=== PATIENT | female | born 1990 | race African-American/Black ===

== ENCOUNTER 2016-10-23 22:21 | Emergency (ER) | payer MEDICAID ==
[2016-10-24] MEDS ORDERED: CLINDAMYCIN HCL 150 MG CAPSULE PO ONE (03:14)
[2016-10-24] MEDS ORDERED: IBUPROFEN 600 MG TABLET PO ONE (03:14)
[2016-10-24] MEDS ORDERED: ONDANSETRON 4 MG TAB.RAPDIS SL ONE (03:15)
[2016-10-24] MEDS ORDERED: NORMAL SALINE 1000 ML 1,000 ML IV PRN (03:22)
--- NOTE | 2016-10-24 03:23 | ER Document Report ---
ED Flu Like - General Chief Complaint: Flu Symptoms Stated Complaint: FLU LIKE SYMPTOMS Time seen by provider: 03:23 Mode of Arrival: Ambulatory Information source: Patient TRAVEL OUTSIDE OF THE [place] IN LAST 30 DAYS: No - HPI Patient complains to provider of: fever, sore throat, vomiting Onset: Yesterday Timing/Duration: Persistent Quality of pain: Achy Severity: Mild Pain Level: 2 Associated symptoms: Body/muscle aches, Fever, Nausea, Vomiting, Sore throat Similar symptoms previously: No Recently seen / treated by doctor: No Notes: Patient is a 25-year-old female who presents to the emergency room complaining of sore throat, subjective fever, vomiting that started yesterday, she denies any sick contacts, no recent traveling, denies chest pain, no abdominal pain no diarrhea, patient did not take any medication at home prior to coming to the emergency room - Related Data Allergies/Adverse Reactions: Penicillins Allergy (Verified 11/06/15 08:33) Past Medical History - General Information source: Patient - Social History Smoking Status: Never Smoker Chew tobacco use (# tins/day): No Frequency of alcohol use: Rare Drug Abuse: None Family History: CVA, Other - anemia Patient has suicidal ideation: No Patient has homicidal ideation: No Pulmonary Medical History: Denies: Hx Asthma Neurological Medical History: Reports: Hx Migraine Renal/ Medical History: Denies: Hx Peritoneal Dialysis GI Medical History: Denies: Hx Gastroesophageal Reflux Disease Past Surgical History: Reports: Hx Breast Surgery - reduction 2006 - Immunizations Hx Diphtheria, Pertussis, Tetanus Vaccination: Yes Review of Systems - Review of Systems Constitutional: See HPI EENT: See HPI Cardiovascular: No symptoms reported Respiratory: No symptoms reported Gastrointestinal: See HPI Genitourinary: No symptoms reported Female Genitourinary: No symptoms reported Musculoskeletal: No symptoms reported Skin: No symptoms reported Hematologic/Lymphatic: No symptoms reported Neurological/Psychological: No symptoms reported -: Yes All other systems reviewed and negative Physical Exam - Vital signs Vitals: Temp Pulse Resp BP Pulse Ox 99.8 F 133 H 22 H 113/65 97 10/23/16 22:35 10/23/16 22:35 10/23/16 22:35 10/23/16 22:35 10/23/16 22:35 Interpretation: Tachycardic - General General appearance: Alert In distress: None - HEENT Head: Normocephalic, Atraumatic Eyes: Normal Conjunctiva: Normal Extraocular movements intact: Yes Eyelashes: Normal Pupils: PERRL Mouth/Lips: Normal Mucous membranes: Normal Pharynx: Erythema, Exudate, Tonsillar hypertrophy Neck: Normal - Respiratory Respiratory status: No respiratory distress Chest status: Nontender Breath sounds: Normal Chest palpation: Normal - Cardiovascular Rhythm: Regular, Tachycardia Heart sounds: Normal auscultation Murmur: No - Abdominal Inspection: Normal, Obese Distension: No distension Bowel sounds: Normal Tenderness: Nontender Organomegaly: No organomegaly - Back Back: Normal, Nontender - Extremities General upper extremity: Normal inspection, Nontender, Normal color, Normal ROM , Normal temperature General lower extremity: Normal inspection, Nontender, Normal color, Normal ROM , Normal temperature, Normal weight bearing. No: Rafi's sign - Neurological Neuro grossly intact: Yes Cognition: Normal Orientation: AAOx4 Abraham Coma Scale Eye Opening: Spontaneous Abraham Coma Scale Verbal: Oriented Abraham Coma Scale Motor: Obeys Commands [place] Coma Scale Total: 15 Speech: Normal Motor strength normal: LUE, RUE, LLE, RLE Sensory: Normal - Psychological Associated symptoms: Normal affect, Normal mood - Skin Skin Temperature: Warm Skin Moisture: Dry Skin Color: Normal Course - Re-evaluation Re-evalutation: 10/24/16 04:14 Patient resting comfortably reports feeling much better, physical exam findings are consistent with strep pharyngitis, rapid strep test confirms this, she will be started on antibiotics for this, advised to follow-up with her primary care provider or return if symptoms worsen, patient acknowledges understanding and agreement with this - Vital Signs Vital signs: Temp Pulse Resp BP Pulse Ox 99.0 F 118 H 16 119/73 97 10/24/16 03:16 10/24/16 03:16 10/24/16 03:16 10/24/16 04:01 10/24/16 04:01 Discharge - Discharge Clinical Impression: Strep pharyngitis Nausea and vomiting Qualifiers: Vomiting type: unspecified Vomiting Intractability: non-intractable Qualified Code(s): R11.2 - Nausea with vomiting, unspecified Condition: Stable Disposition: HOME, SELF-CARE Instructions: Antinausea Medication ([facility]), Intravenous (IV) Fluids ([facility]), Strep Throat ([facility]) Additional Instructions: Drink plenty of fluids. Tylenol or Motrin as needed for fever. Follow-up with your primary care provider in one to 2 days. Return to the emergency room immediately if symptoms worsen or any additional concerns. Prescriptions: Clindamycin HCl 300 mg PO RTTIDP PRN #30 capsule PRN Reason: Forms: Return to Work
[2016-10-24 04:06] VITALS: BP 119/73
[2016-10-24] MEDS ORDERED: ONDANSETRON ODT 4 MG TAB (6 TAB/DSPK) PO PRN (04:16)
== END 2016-10-24 04:37 | disposition home or self-care (01) ==
LOC: ER 22:21
DX: J02.0 Streptococcal pharyngitis (principal); R11.2 Nausea with vomiting, unspecified; M79.1 Myalgia; Z88.0 Allergy status to penicillin; Z87.19 Personal history of other diseases of the digestive system; R00.0 Tachycardia, unspecified
CPT/HCPCS: 99283; 96360; 87880; S0119; J7030

== ENCOUNTER 2017-03-22 17:35 | Emergency (ER) | payer MEDICAID, OTHER ==
[2017-03-22 17:40] VITALS: BP 119/74
--- NOTE | 2017-03-22 18:53 | ER Document Report ---
ED Skin Rash/Insect Bite/Abscs - General Chief Complaint: Skin Problem Stated Complaint: RASH,SWOLLEN NECK Time Seen by Provider: 03/22/17 18:31 Mode of Arrival: Ambulatory Information source: Patient TRAVEL OUTSIDE OF THE [place] IN LAST 30 DAYS: No - HPI Patient complains to provider of: Other - dark brown irritations to right side of face for 2 weeks Onset: Other - 2 weeks Onset/Duration: Gradual Quality of pain: Burning Severity: Mild Pain Level: 1 Skin Character: Other - dark brown patches to right lower face Quality of rash: Itchy Identify cause: No Exacerbated by: Denies Relieved by: Denies Similar symptoms previously: No Recently seen / treated by doctor: No - Related Data Allergies/Adverse Reactions: Penicillins Allergy (Verified 03/22/17 17:38) Past Medical History - General Information source: Patient - Social History Smoking Status: Never Smoker Cigarette use (# per day): No Chew tobacco use (# tins/day): No Smoking Education Provided: No Frequency of alcohol use: Rare Drug Abuse: None Occupation: exchange Lives with: Family Family History: CVA, Other - anemia - Past Medical History Cardiac Medical History: Reports: Hx Hypertension Pulmonary Medical History: Reports: None EENT Medical History: Reports: None Neurological Medical History: Reports: Hx Migraine Endocrine Medical History: Reports: None Renal/ Medical History: Reports: None Malignancy Medical History: Reports: None GI Medical History: Reports: None Musculoskeltal Medical History: Reports None Skin Medical History: Reports None Psychiatric Medical History: Reports: None Traumatic Medical History: Reports: None Infectious Medical History: Reports: None Past Surgical History: Reports: Hx Breast Surgery - reduction 2006 - Immunizations Hx Diphtheria, Pertussis, Tetanus Vaccination: Yes Review of Systems - Review of Systems Constitutional: No symptoms reported EENT: Other - fungal dark spots to face started 3 weeks ago, tender post aricula node Cardiovascular: No symptoms reported Respiratory: No symptoms reported Gastrointestinal: No symptoms reported Genitourinary: No symptoms reported Female Genitourinary: No symptoms reported Musculoskeletal: No symptoms reported Skin: No symptoms reported Hematologic/Lymphatic: No symptoms reported Neurological/Psychological: No symptoms reported -: Yes All other systems reviewed and negative Physical Exam - Vital signs Vitals: Temp Pulse Resp BP Pulse Ox 98.8 F 106 H 18 119/74 96 03/22/17 17:39 03/22/17 17:39 03/22/17 17:39 03/22/17 17:39 03/22/17 17:39 Interpretation: Normal - General General appearance: Appears well, Alert - HEENT Head: Normocephalic, Atraumatic Eyes: Normal Pupils: PERRL - Respiratory Respiratory status: No respiratory distress Chest status: Nontender Breath sounds: Normal Chest palpation: Normal - Cardiovascular Rhythm: Regular Heart sounds: Normal auscultation Murmur: No - Abdominal Inspection: Normal Distension: No distension Bowel sounds: Normal Tenderness: Nontender Organomegaly: No organomegaly - Back Back: Normal, Nontender - Extremities General upper extremity: Normal inspection, Nontender, Normal color, Normal ROM , Normal temperature General lower extremity: Normal inspection, Nontender, Normal color, Normal ROM , Normal temperature, Normal weight bearing. No: Rafi's sign - Neurological Neuro grossly intact: Yes Cognition: Normal Orientation: AAOx4 [place] Coma Scale Eye Opening: Spontaneous Abraham Coma Scale Verbal: Oriented Abraham Coma Scale Motor: Obeys Commands Abraham Coma Scale Total: 15 Speech: Normal Motor strength normal: LUE, RUE, LLE, RLE Sensory: Normal - Psychological Associated symptoms: Normal affect, Normal mood - Skin Skin Temperature: Warm Skin Moisture: Dry Skin Color: Normal Location of irregularity: Face Character of irregularity: Other - dark brown fungal infection to right lower are of face Course - Re-evaluation Re-evalutation: 03/22/17 18:58 Discussed treatment with patient after she was assessed by Dr. Llamas. Patient discharged home with prescription for Lotrisone - Vital Signs Vital signs: Temp Pulse Resp BP Pulse Ox 98.8 F 106 H 18 119/74 96 03/22/17 17:39 03/22/17 17:39 03/22/17 17:39 03/22/17 17:39 03/22/17 17:39 Discharge - Discharge Clinical Impression: Tinea corporis Condition: Stable Disposition: HOME, SELF-CARE Additional Instructions: You have a fungal infection to your face called tinea will need to be treated with antifungal cream.. Topical Antifungal You have been given a prescription for an antifungal skin cream. Examples include Lamisil (terbinafine), Lotrimin (clotrimazole), Monistat-Derm ( miconazole), Nizoral (ketoconazole), and Tinactin (tolnaftate). It may be several days before improvement occurs. You should use the medicine for about two weeks to eliminate the fungus, unless the doctor tells you otherwise. It is unusual to be allergic to these medicines. Call the doctor if you develop blisters, severe itching, worsening redness, swelling, or pain, or if you don't see any improvement within one week. FOLLOW-UP CARE: If you have been referred to a physician for follow-up care, call the physician s office for an appointment as you were instructed or within the next two days. If you experience worsening or a significant change in your symptoms, notify the physician immediately or return to the Emergency Department at any time for re-evaluation. Prescriptions: Clotrimazole/Betamethasone Dip [Lotrisone Cream 15 gm] 1 applic TP BID #1 tube Forms: Return to Work Referrals: TO LANDRY, [ACTIVE STAFF] - Follow up as needed
== END 2017-03-22 18:55 | disposition home or self-care (01) ==
LOC: ER 17:35
DX: B35.4 Tinea corporis (principal); I10 Essential (primary) hypertension; Z88.0 Allergy status to penicillin
CPT/HCPCS: 99283

== ENCOUNTER → 2017-08-16 | Outpatient (CLI) | payer BC ==
--- NOTE | 2017-08-16 10:59 | RADIOLOGY REPORT (SQ) ---
EXAM DESCRIPTION: FOOT LEFT COMPLETE COMPLETED DATE/TIME: 08/16/2017 10:47 am REASON FOR STUDY: PAIN IN LEFT TOE(S) M79.675 PAIN IN LEFT TOE(S) COMPARISON: None. NUMBER OF VIEWS: Three views. TECHNIQUE: AP, lateral and oblique without weight bearing radiographic images acquired of the left f oot. LIMITATIONS: None. FINDINGS: MINERALIZATION: Normal. BONES: No acute fracture or dislocation. No worrisome bone lesions. No significant osteophytes. JOINTS: No erosions. No norm-articular osteopenia. No chondrocalcinosis. SOFT TISSUES: No swelling. No calcifications. OTHER: No other significant finding. IMPRESSION: NEGATIVE STUDY OF THE LEFT FOOT. NO EXPLANATION FOR PAIN. TECHNICAL DOCUMENTATION: JOB ID: [id number] [employer]- All Rights Reserved
== END ==
LOC: OD 10:35
PROVIDERS: ATTEND Family Medicine
DX: M79.675 Pain in left toe(s) (principal)

== ENCOUNTER 2017-10-27 02:47 | Emergency (ER) | payer BC ==
[2017-10-27 03:25] VITALS: BP 126/74
== END 2017-10-27 03:30 | disposition left against medical advice (07) ==
LOC: ER 02:47
DX: Z53.21 Procedure and treatment not carried out due to patient leaving prior to being seen by health care provider (principal)

== ENCOUNTER 2017-10-30 20:47 | Emergency (ER) | payer BC, OTHER ==
[2017-10-30] MEDS ORDERED: BUTALB/ACETAMINOPHEN/CAFFEINE 1 TAB EACH PO ONE (22:13)
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
[2017-10-30 23:10] VITALS: BP 134/77
== END 2017-10-30 22:58 | disposition home or self-care (01) ==
LOC: ER 20:47
DX: S06.0X9A Concussion with loss of consciousness of unspecified duration, initial encounter (principal); R22.0 Localized swelling, mass and lump, head; Y04.0XXA Assault by unarmed brawl or fight, initial encounter; Y92.59 Other trade areas as the place of occurrence of the external cause; R11.0 Nausea; R51 Headache; R42 Dizziness and giddiness; H53.8 Other visual disturbances; G47.00 Insomnia, unspecified; R41.0 Disorientation, unspecified; I10 Essential (primary) hypertension; Z88.0 Allergy status to penicillin
CPT/HCPCS: 99284; 70450; J3490

== ENCOUNTER 2017-12-22 07:53 | Emergency (ER) | payer BC, OTHER ==
[2017-12-22] MEDS ORDERED: LIDOCAINE 1% INJ-PF (10 MG/ML) 30 ML SDV INJ ONE (08:28)
--- NOTE | 2017-12-22 08:36 | ER Document Report ---
ED General - General Chief Complaint: Abscess Stated Complaint: SKIN ISSUE Time Seen by Provider: 12/22/17 08:21 Mode of Arrival: Ambulatory Information source: Patient Notes: 27-year-old female presents with a left buttocks abscess 5 day duration. Patient denies any previous similar episodes notes initially it felt like an ingrown hair she tried to squeeze and since then the symptoms worsen, she has tried to do hot baths with no improvement. She denies a history of any previous abscesses, denies any fevers or chills denies any nausea vomiting or diarrhea notes pain TRAVEL OUTSIDE OF THE [place] IN LAST 30 DAYS: No - HPI Onset: Other - 3 5 days Onset/Duration: Persistent, Worse Quality of pain: Sharp Severity: Moderate Pain Level: 2 Associated symptoms: Other Exacerbated by: Other Relieved by: Denies Similar symptoms previously: No Recently seen / treated by doctor: No - Related Data Allergies/Adverse Reactions: Penicillins Allergy (Verified 12/22/17 07:54) Past Medical History - Social History Smoking Status: Never Smoker Cigarette use (# per day): No Chew tobacco use (# tins/day): No Smoking Education Provided: No Frequency of alcohol use: None Drug Abuse: None Family History: CVA, Other - anemia Patient has suicidal ideation: No Patient has homicidal ideation: No - Past Medical History Cardiac Medical History: Reports: Hx Hypertension Pulmonary Medical History: Denies: Hx Asthma Neurological Medical History: Reports: Hx Migraine Renal/ Medical History: Denies: Hx Peritoneal Dialysis GI Medical History: Denies: Hx Gastroesophageal Reflux Disease Past Surgical History: Reports: Hx Breast Surgery - reduction 2006 - Immunizations Hx Diphtheria, Pertussis, Tetanus Vaccination: Yes Review of Systems - Review of Systems Notes: REVIEW OF SYSTEMS: CONSTITUTIONAL : Denies fever, chills, or sweats. Denies recent illness. EENT: Denies eye, ear, throat, or mouth pain or symptoms. Denies nasal or sinus congestion or discharge. Denies throat, tongue, or mouth swelling or difficulty swallowing. CARDIOVASCULAR: Denies chest pain. Denies palpitations or racing or irregular heart beat. Denies ankle edema. RESPIRATORY: Denies cough, cold, or chest congestion. Denies shortness of breath, difficulty breathing, or wheezing. GASTROINTESTINAL: Denies abdominal pain or distention. Denies nausea, vomiting , or diarrhea. Denies blood in vomitus, stools, or per rectum. Denies black, tarry stools. Denies constipation. GENITOURINARY: Denies difficulty urinating, painful urination, burning, frequency, blood in urine, or discharge. FEMALE GENITOURINARY: Denies vaginal bleeding, heavy or abnormal periods, irregular periods. Denies vaginal discharge or odor. MUSCULOSKELETAL: Denies back or neck pain or stiffness. Denies joint pain or swelling. SKIN: Admits to abscess HEMATOLOGIC : Denies easy bruising or bleeding. LYMPHATIC: Denies swollen, enlarged glands. NEUROLOGICAL: Denies confusion or altered mental status. Denies passing out or loss of consciousness. Denies dizziness or lightheadedness. Denies headache. Denies weakness or paralysis or loss of use of either side. Denies problems with gait or speech. Denies sensory loss, numbness, or tingling. Denies seizures. PSYCHIATRIC: Denies anxiety or stress. Denies depression, suicidal ideation, or homicidal ideation. ALL OTHER SYSTEMS REVIEWED AND NEGATIVE. PHYSICAL EXAMINATION: GENERAL: Well-appearing, well-nourished and in no acute distress. HEAD: Atraumatic, normocephalic. EYES: Pupils equal round extraocular movements intact, conjunctiva are normal. ENT: Nares patent NECK: Normal range of motion LUNGS: No respiratory distress Musculoskeletal: Normal range of motion NEUROLOGICAL: Normal speech, normal gait. PSYCH: Normal mood, normal affect. SKIN: left buttocks abscess measuring 4x3 cm near the labia majora but without involvment of the pubic region, it is pustular and tender Dictation was performed using [employer] voice recognition software Physical Exam - Vital signs Vitals: Temp Pulse Resp BP Pulse Ox 98.8 F 103 H 16 120/62 99 12/22/17 07:58 12/22/17 07:58 12/22/17 07:58 12/22/17 07:58 12/22/17 07:58 Course - Re-evaluation Re-evalutation: 12/22/17 08:36 Patient's presentation most consistent with an abscess 12/22/17 08:52 Area was incised and drained large amount of pus was noted,, culture obtained I explored the wound thoroughly and will place her on antibiotic After performing a Medical Screening Examination, I estimate there is LOW risk for RETAINED FOREIGN BODY, thus I consider the discharge disposition reasonable. Also, there is no evidence or peritonitis, sepsis, or toxicity. I have reevaluated this patient multiple times and no significant life threatening changes are noted. The patient and I have discussed the diagnosis and risks, and we agree with discharging home with close follow-up with the understanding that symptoms and presentations can change. We also discussed returning to the Emergency Department immediately if new or worsening symptoms occur. We have discussed the symptoms which are most concerning (e.g., changing or worsening pain, fever, numbness, weakness, cool or painful digits) that necessitate immediate return. 12/22/17 08:58 We discussed patient's allergy to penicillin which is only hives, cross reactivity with cephalosporins unlikely - Vital Signs Vital signs: Temp Pulse Resp BP Pulse Ox 98.8 F 103 H 16 120/62 99 12/22/17 07:58 12/22/17 07:58 12/22/17 07:58 12/22/17 07:58 12/22/17 07:58 Procedures - Incision and Drainage Left Buttock Time completed: 08:57 Type: Multiple Anesthetic type: 1% Lidocaine mL's of anesthetic: 5 Blade size: 11 I&D procedure: Shurclens applied, Sterile dressing applied Incision Method: Incision made by scalpel Amount/type of drainage: Large amount of pus Discharge - Discharge Clinical Impression: Left buttock abscess Condition: Stable Disposition: HOME, SELF-CARE Instructions: Post Incision and Drainage Additional Instructions: Follow up with your physician tomorrow for further care or return to the ED IMMEDIATELY if symptoms worsen or new concerns occur. If you cannot afford to follow up with your primary care physician a list of low cost clinics have been provided at the end of your discharge papers as well. Prescriptions: Cephalexin Monohydrate [Keflex 500 mg Capsule] 500 mg PO QID #40 capsule Hydrocodone/Acetaminophen [Floyd 5-325 mg Tablet] 1 tab PO Q6 #10 tablet Sulfamethoxazole/Trimethoprim [Bactrim Ds Tablet] 2 each PO BID #40 tablet
[2017-12-22 09:09] VITALS: BP 118/65
== END 2017-12-22 09:08 | disposition home or self-care (01) ==
LOC: ER 07:53
DX: L02.31 Cutaneous abscess of buttock (principal); I10 Essential (primary) hypertension; Z88.0 Allergy status to penicillin
CPT/HCPCS: 87070; 87077; 87186; 87205; 99283

== ENCOUNTER → 2018-03-05 | Outpatient (CLI) | payer BC ==
--- NOTE | 2018-03-05 22:12 | EKG REPORT ---
SEVERITY:- NORMAL ECG - SINUS RHYTHM : Confirmed by: Abeba Zhang 05-Mar-2018 22:11:09
== END ==
LOC: OD 14:36
PROVIDERS: ATTEND Psychiatry & Neurology Psychiatry
DX: F41.1 Generalized anxiety disorder (principal)
CPT/HCPCS: 93005; 93010

== ENCOUNTER 2018-11-06 07:59 | Emergency (ER) | payer BC, OTHER ==
[2018-11-06 09:35] LABS: ALANINE AMINOTRANSFERASE 23 U/L (9-52); ALBUMIN 3.8 g/dL (3.5-5.0); ALKALINE PHOSPHATASE 85 U/L (38-126); ANION GAP 7 (5-19); ASPARTATE AMINO TRANSFERASE 24 U/L (14-36); BILIRUBIN,DIRECT 0.4 mg/dL (0.0-0.4); BILIRUBIN,TOTAL 0.5 mg/dL (0.2-1.3); BLOOD UREA NITROGEN 11 mg/dL (7-20); CALCIUM 9.6 mg/dL (8.4-10.2); CARBON DIOXIDE 27 mmol/L (22-30); CHLORIDE 107 mmol/L (98-107); GLUCOSE 92 mg/dL (75-110); LIPASE 40.3 U/L (23-300); POTASSIUM 4.8 mmol/L (3.6-5.0); SODIUM 140.9 mmol/L (137-145); TOTAL PROTEIN 7.7 g/dL (6.3-8.2)
[2018-11-06 09:39] LABS: APPEARANCE,URINE CLEAR; BILIRUBIN,URINE NEGATIVE (NEGATIVE); COLOR,URINE YELLOW; GLUCOSE, URINE NEGATIVE (NEGATIVE); KETONES,URINE NEGATIVE (NEGATIVE); LEUKOCYTE ESTERASE,URINE NEGATIVE (NEGATIVE); NITRITE,URINE NEGATIVE (NEGATIVE); PROTEIN,URINE NEGATIVE (NEGATIVE); URINE SPECIFIC GRAVITY 1.017
[2018-11-06 09:41] LABS: HEMOGLOBIN 8.2 g/dL (12.0-15.5); MEAN CORPUSCULAR HEMOGLOBIN 12.9 pg (27.0-33.4); RED BLOOD COUNT 6.34 10^6/uL (3.72-5.28); RED CELL DISTRIBUTION WIDTH 20.7 % (11.5-14.0); WHITE BLOOD COUNT 5.8 10^3/uL (4.0-10.5)
[2018-11-06 10:28] LABS: HEMATOCRIT 28.7 % (36.0-47.0)
[2018-11-06 10:30] LABS: MEAN CORPUSCULAR HGB CONC 28.5 g/dL (32.0-36.0)
[2018-11-06 10:31] LABS: MEAN CORPUSCULAR VOLUME < 50 fl (80-97)
[2018-11-06 10:48] LABS: ABSOLUTE LYMPHOCYTES# (MANUAL) 3.4 10^3/uL (0.5-4.7); ABSOLUTE MONOCYTES # (MANUAL) 0.2 10^3/uL (0.1-1.4); ABSOLUTE NEUTROPHILS# (MANUAL) 2.1 10^3/uL (1.7-8.2); BAND NEUTROPHILS % (MANUAL) 1 % (3-5); BASOPHILS % (MANUAL) 2 % (0-2); EOSINOPHILS % (MANUAL) 0 % (0-6); LYMPHOCYTES % (MANUAL) 53 % (13-45); MONOCYTES % (MANUAL) 3 % (3-13); SEGMENTED NEUTROPHILS % (MAN) 36 % (42-78); TOTAL CELLS COUNTED 100
[2018-11-06 10:52] LABS: ANISOCYTOSIS 2+; HYPOCHROMASIA 3+
[2018-11-06 10:53] LABS: OVALOCYTES 1+; POIKILOCYTOSIS 1+; RBC MORPHOLOGY COMMENT 1; TARGET CELLS SLIGHT; TEAR DROP CELLS SLIGHT
[2018-11-06 10:54] LABS: PLATELET COMMENT ADEQUATE
[2018-11-06 10:56] LABS: PLATELET COUNT 155 10^3/uL (150-450)
[2018-11-06] MEDS ORDERED: KETOROLAC TROMETHAMINE INJ/PF 30 MG/1 ML SDV IV ONE (11:24)
[2018-11-06 11:36] LABS: RBCS (WET MOUNT) 2+ RBCS SEEN; T.VAGINALIS (WET MOUNT) TRICHOMONAS SEEN; WBCS (WET MOUNT) FEW WBCS SEEN; YEAST (WET MOUNT) NO YEAST SEEN
--- NOTE | 2018-11-06 12:10 | RADIOLOGY REPORT (SQ) ---
EXAM DESCRIPTION: U/S NON OB PEL TV W/DOPPLER COMPLETED DATE/TIME: 11/06/2018 11:52 am REASON FOR STUDY: abd pain COMPARISON: CT abdomen pelvis 08/23/2012 Pelvic ultrasound 12/08/2011 TECHNIQUE: Dynamic and static grayscale images acquired of the pelvis via transvaginal approach and recorded on PACS. Additional selected color Doppler and spectral images recorded. LIMITATIONS: None. FINDINGS: UTERUS: Contour normal. No mass. Uterus is 9 x 4 x 4 cm in size ENDOMETRIAL STRIPE: No focal or generalized thickening. No masses. Endometrium 3 mm in thickness, an IUD is present in good positioning. CERVIX: No nabothian cysts. Closed, 2.3 cm in length. RIGHT OVARY AND DOPPLER: Normal size, 2.5 x 1.6 x 0.9 cm in size. No worrisome masses. Normal arteria l vascular flow without evidence for torsion. LEFT OVARY AND DOPPLER: Normal size, 3.9 x 2.8 x 2.1 cm in size. 2.8 x 2.5 cm cyst is present with s omid septation and low level internal echoes likely a hemorrhagic cyst. No worrisome masses. Normal arterial vascular flow without evidence for torsion. FREE FLUID: None noted. OTHER: No other significant finding. IMPRESSION: 2.8 CM LEFT OVARIAN CYST. NO ULTRASOUND EVIDENCE OF LEFT OVARIAN TORSION. NO LEFT ADNE XAL OR CUL-DE-SAC FREE FLUID IUD IN THE UTERUS. OTHERWISE, UNREMARKABLE TRANSVAGINAL PELVIC ULTRASOUND. TECHNICAL DOCUMENTATION: JOB ID: [id number] [employer]- All Rights Reserved Rev-11/29 Reading location - IP/workstation name: [email or web address]
[2018-11-06 12:57] LABS: CHLAM PCR NOT DETECTED (NOT DETECT); GON PCR NOT DETECTED (NOT DETECT)
[2018-11-06] MEDS ORDERED: METRONIDAZOLE 500 MG TABLET PO ONE (13:04)
[2018-11-06] MEDS ORDERED: CEFTRIAXONE INJ 250 MG VIAL IM ONE (13:04)
[2018-11-06] MEDS ORDERED: AZITHROMYCIN 1 GM SUSP PACKET PO ONE (13:04)
--- NOTE | 2018-11-06 13:07 | ER Document Report ---
ED General - General Chief Complaint: Abdominal Pain Stated Complaint: ABDOMINAL PAIN Time Seen by Provider: 11/06/18 08:27 Primary Care Provider: CATINA VELEZ MD [Primary Care Provider] - Follow up as needed TRAVEL OUTSIDE OF THE [place] IN LAST 30 DAYS: No - HPI Patient complains to provider of: Left lower abdominal pain Notes: Patient coming for left lower abdominal pain. Patient states left abdominal pain ongoing for greater than the last 5 days. Patient denies any vaginal discharge states she is having some vaginal bleeding. Patient does have an IUD present. Patient states multiple sexual partners. Patient denies any fever chills nausea vomiting or diarrhea. Patient otherwise resting company upon my evaluation states pain is worse with movement - Related Data Allergies/Adverse Reactions: Penicillins Allergy (Verified 11/06/18 08:02) Past Medical History - Social History Smoking Status: Never Smoker Frequency of alcohol use: None Drug Abuse: None Family History: CVA, Other - anemia Patient has suicidal ideation: No Patient has homicidal ideation: No - Past Medical History Cardiac Medical History: Reports: Hx Hypertension Pulmonary Medical History: Denies: Hx Asthma Neurological Medical History: Reports: Hx Migraine Renal/ Medical History: Denies: Hx Peritoneal Dialysis GI Medical History: Denies: Hx Gastroesophageal Reflux Disease Past Surgical History: Reports: Hx Breast Surgery - reduction 2005 - Immunizations Hx Diphtheria, Pertussis, Tetanus Vaccination: Yes Review of Systems - Review of Systems Constitutional: No symptoms reported EENT: No symptoms reported Cardiovascular: No symptoms reported Respiratory: No symptoms reported Gastrointestinal: Abdominal pain Genitourinary: No symptoms reported Female Genitourinary: No symptoms reported Musculoskeletal: No symptoms reported Skin: No symptoms reported Hematologic/Lymphatic: No symptoms reported Neurological/Psychological: No symptoms reported -: Yes All other systems reviewed and negative Physical Exam - Vital signs Vitals: Temp Pulse Resp BP Pulse Ox 98.4 F 82 16 123/72 97 11/06/18 08:05 11/06/18 08:05 11/06/18 08:05 11/06/18 08:05 11/06/18 08:05 Interpretation: Normal - General General appearance: Appears well, Alert - HEENT Head: Normocephalic, Atraumatic Eyes: Normal Pupils: PERRL - Respiratory Respiratory status: No respiratory distress Chest status: Nontender Breath sounds: Normal Chest palpation: Normal - Cardiovascular Rhythm: Regular Heart sounds: Normal auscultation Murmur: No - Abdominal Inspection: Normal Distension: No distension Bowel sounds: Normal Tenderness: Nontender Organomegaly: No organomegaly - Genitourinary External exam: Normal Speculum exam: Cervix closed Vaginal bleeding: Moderate Bimanuel exam: Normal - Back Back: Normal, Nontender - Extremities General upper extremity: Normal inspection, Nontender, Normal color, Normal ROM, Normal temperature General lower extremity: Normal inspection, Nontender, Normal color, Normal ROM, Normal temperature, Normal weight bearing. No: Rafi's sign - Neurological Neuro grossly intact: Yes Cognition: Normal Orientation: AAOx4 Wrens Coma Scale Eye Opening: Spontaneous Abraham Coma Scale Verbal: Oriented Wrens Coma Scale Motor: Obeys Commands Wrens Coma Scale Total: 15 Speech: Normal Motor strength normal: LUE, RUE, LLE, RLE Sensory: Normal - Psychological Associated symptoms: Normal affect, Normal mood - Skin Skin Temperature: Warm Skin Moisture: Dry Skin Color: Normal Course - Re-evaluation Re-evalutation: 11/06/18 13:37 Patient with a chronic anemia. Patient did return positive for trichomonas we will go ahead and treat the patient for gonorrhea and chlamydia. Discussed IUD placement with the [employer] recommends leaving the IUD in place. Recommends treatment with 10-day course of Flagyl for trichomonas. Patient has a left ovarian cyst possible etiology of pain no signs of torsion. Patient will be discharged home follow-up primary care physician. - Vital Signs Vital signs: Temp Pulse Resp BP Pulse Ox 98.4 F 82 16 123/72 97 11/06/18 08:05 11/06/18 08:05 11/06/18 08:05 11/06/18 08:05 11/06/18 08:05 - Laboratory Result Diagrams: 11/06/18 08:32 11/06/18 08:32 Laboratory results interpreted by me: 11/06/18 11/06/18 08:32 09:05 RBC 6.34 H Hgb 8.2 L Hct 28.7 L MCV < 50 L* MCH 12.9 L MCHC 28.5 L RDW 20.7 H Seg Neuts % (Manual) 36 L Band Neutrophils % 1 L Lymphocytes % (Manual) 53 H Urine Blood MODERATE H Urine Urobilinogen 2.0 H Discharge - Discharge Clinical Impression: Trichomonal infection, Left ovarian cyst Condition: Good Disposition: HOME, SELF-CARE Instructions: Chlamydia ([facility]), Gonorrhea ([facility]), Ovarian Cyst ([facility]), Trichomonas Infection ([facility]) Additional Instructions: Your pelvic examination today does show signs of a sexual transmitted disease called trichomonas. We will go ahead and treat you also for gonorrhea and chlamydia. Please take all of the antibiotics as prescribed. Return to the ER symptoms worsen follow-up with your primary care physician. Please avoid any sexual contact for the next 2 weeks. Please let your sexual partners be aware as that they will need to be treated as well. You can call the ER tomorrow for your gonorrhea and Chlamydia results. Prescriptions: Metronidazole [Flagyl 500 mg Tablet] 500 mg PO TID #30 tablet Referrals: CATINA VELEZ MD [Primary Care Provider] - Follow up as needed
[2018-11-06] MEDS ORDERED: LIDOCAINE 1% INJ-PF (10 MG/ML) 30 ML SDV ONE (13:33)
[2018-11-06 14:31] VITALS: BP 131/82
--- NOTE | 2018-11-06 18:59 | EKG REPORT ---
SEVERITY:- NORMAL ECG - SINUS RHYTHM : Confirmed by: Arpit Lemus MD 06-Nov-2018 18:58:27
== END 2018-11-06 14:34 | disposition home or self-care (01) ==
LOC: ER 07:59
DX: A59.9 Trichomoniasis, unspecified (principal); N83.202 Unspecified ovarian cyst, left side; D64.9 Anemia, unspecified; N93.9 Abnormal uterine and vaginal bleeding, unspecified; I10 Essential (primary) hypertension; Z97.5 Presence of (intrauterine) contraceptive device; Z88.0 Allergy status to penicillin
CPT/HCPCS: 93005; 99284; 96372; 96374; 36415; 87210; 83690; 85025; 81025; 80053; 81001; 87491; 87591; 76830; 93976; 93010; J3490; Q0144; J1885; J0696